=== PATIENT | male | born 2000 | race Caucasian/White ===

== ENCOUNTER 2023-03-21 02:06 | Emergency (ER) | payer SELFPAY ==
[~2023-03-21] VITALS: Ht 180.3 cm; Wt 92.1 kg
--- NOTE | 2023-03-21 02:08 | NUR ---
PT JAMIE CHP TO CHAIR
--- NOTE | 2023-03-21 02:09 | NUR ---
Patient being evaluated by physician at bedside.
[2023-03-21 02:11] VITALS: BP 120/74
[2023-03-21] MEDS ORDERED: LIDOCAINE 1% 500 MG/ 50 ML VIAL INJ ONE (02:15)
--- NOTE | 2023-03-21 02:23 | NUR ---
PT TAKEN TO BED 12 WITH GENESISP
[2023-03-21] MEDS ORDERED: LIDOCAINE MPF 1% 5 ML ONE (02:24)
--- NOTE | 2023-03-21 02:25 | NUR ---
ERMD by bedside at this time
[2023-03-21 04:10] VITALS: BP 120/74
--- NOTE | 2023-03-21 04:15 | NUR ---
Patient discharged with v/s stable. Written and verbal after care instructions given and explained. Patient verbalized understanding. Ambulatory with steady gait accompanied by grandparent. All questions addressed prior to discharge. Advised to follow up with PMD.
== END 2023-03-21 04:09 ==
LOC: MED 02:06
DX: S62.612A Displaced fracture of proximal phalanx of right middle finger, initial encounter for closed fracture (principal); S01.111A Laceration without foreign body of right eyelid and periocular area, initial encounter; Z88.0 Allergy status to penicillin; V49.88XA Car occupant (driver) (passenger) injured in other specified transport accidents, initial encounter; Y93.89 Activity, other specified; Y92.89 Other specified places as the place of occurrence of the external cause; Y99.8 Other external cause status
CPT/HCPCS: 12011; 29130; 73130; 90471; 90715; 99283; J2001